=== PATIENT | female | born 1990 | race American Indian/Alaskan Native ===

== ENCOUNTER 2019-07-27 08:34 | Day surgery (SDC) | payer OTHER ==
[2019-07-27 09:23] LABS: Basophils % (Auto) 0.8 % (0.0-1.8); Eosinophils # (Auto) 0.1 K/mm3 (0.0-0.4); Eosinophils % (Auto) 0.9 % (0.0-4.3); Hemoglobin 10.9 gm/dl (10.1-14.3); Lymphocytes % (Auto) 33.8 % (13.4-35.0); Mean Corpuscular HGB Conc 33 % (30-34); Mean Corpuscular Volume 88 fl (79-97); Monocytes # (Auto) 0.3 K/mm3 (0.0-0.8); Monocytes % (Auto) 5.6 % (0.0-7.3); Platelet Count 253 K/mm3 (140-440); Red Blood Count 3.77 M/mm3 (3.65-5.03); Red Cell Distribution Width 15.6 % (13.2-15.2)
[2019-07-27] MEDS ORDERED: MORPHINE 4 MG/1 ML INJ IV ONE ×2 (09:54→13:39)
[2019-07-27] MEDS ORDERED: ONDANSETRON 4 MG/2 ML INJ IV ONE (09:54)
[2019-07-27] MEDS ORDERED: SODIUM CHLORIDE 0.9% 1000 ML 1,000 ML IV ONE ×2 (09:54→13:39)
--- NOTE | 2019-07-27 10:03 | Emergency Department Report ---
ED Abdominal Pain HPI - General Chief Complaint: Abdominal Pain Stated Complaint: ABD PAIN Time Seen by Provider: 07/27/19 09:53 Source: patient, EMS Mode of arrival: Wheelchair Limitations: No Limitations - History of Present Illness Initial Comments: Job is a 29 yo female with hx of ectopic x 2 who presents with lower abdominal pain radiating to the umbilicus for the past one week. Pain began after falling down the steps. Initially intermittnent then returned 3 days ago. Has had vaginal spotting. No vaginal discahrge. severe pain today. achyy sharp pain. no change with movement. 2 months ago she had her left fallopian tube removed from an ectopic at [facility]. Patient has been 5 previous times. Two ectopic pregnancies. One live . One surgical . One miscarriage. MD Complaint: abdominal pain -: Gradual, week(s) (1) Location: LLQ, RLQ Radiation: other (radiates to the umbilicus) Migration to: periumbilical Severity: severe Quality: cramping, aching, sharp Consistency: constant Improves With: nothing Worsens With: nothing Context: recent surgery/procedure (fallopian tube removed 2 months ago) Associated Symptoms: other (vaginal spotting) - Related Data Allergies Allergy/AdvReac Type Severity Reaction Status Date / Time No Known Allergies Allergy Unverified 07/27/19 08:34 ED Review of Systems ROS: Stated complaint: ABD PAIN Other details as noted in HPI Comment: All other systems reviewed and negative Constitutional: denies: fever, malaise Respiratory: denies: cough Cardiovascular: denies: chest pain Gastrointestinal: abdominal pain. denies: nausea, vomiting ED Past Medical Hx - Past Medical History Previous Medical History?: Yes Additional medical history: Ectopic / x 4 - Surgical History Past Surgical History?: Yes Additional Surgical History: Ectopic - Social History Smoking Status: Current Every Day Smoker Substance Use Type: Marijuana ED Physical Exam - General Limitations: No Limitations General appearance: alert, in no apparent distress, other (walking around room with mild discomfort) - Head Head exam: Present: atraumatic, normocephalic - Eye Eye exam: Present: normal appearance - ENT ENT exam: Present: mucous membranes moist - Neck Neck exam: Present: normal inspection, full ROM - Respiratory Respiratory exam: Present: normal lung sounds bilaterally. Absent: respiratory distress, wheezes, rales, rhonchi - Cardiovascular Cardiovascular Exam: Present: regular rate, normal rhythm, normal heart sounds. Absent: systolic murmur, diastolic murmur, rubs, gallop - GI/Abdominal GI/Abdominal exam: Present: soft, normal bowel sounds. Absent: distended, tenderness, guarding, rebound - External exam: Present: normal external exam. Absent: erythema, swelling, lesions, lacerations, ecchymosis, bleeding Speculum exam: Present: vaginal discharge Bi-manual exam: Present: cervical motion tendernes, adnexal tenderness - Extremities Exam Extremities exam: Present: normal inspection - Neurological Exam Neurological exam: Present: alert, oriented X3 - Psychiatric Psychiatric exam: Present: normal affect, normal mood - Skin Skin exam: Present: warm, dry, intact, normal color. Absent: rash ED Course Vital Signs 07/27/19 07/27/19 07/27/19 08:37 09:58 10:01 Temperature 97.8 F Pulse Rate 61 Respiratory 16 15 Rate Blood Pressure 99/35 100/52 Blood Pressure 100/52 [Right] O2 Sat by Pulse 100 100 Oximetry 07/27/19 07/27/19 07/27/19 10:15 10:31 10:39 Temperature Pulse Rate 61 59 L Respiratory 13 11 L 14 Rate Blood Pressure 100/52 100/52 Blood Pressure [Right] O2 Sat by Pulse Oximetry 07/27/19 07/27/19 07/27/19 10:45 11:01 11:09 Temperature Pulse Rate 57 L 61 Respiratory 8 L 11 L 16 Rate Blood Pressure 100/52 100/52 Blood Pressure [Right] O2 Sat by Pulse 100 100 Oximetry 07/27/19 07/27/19 07/27/19 11:15 11:31 11:45 Temperature Pulse Rate 58 L 54 L 55 L Respiratory 10 L 11 L 9 L Rate Blood Pressure 100/52 100/52 100/52 Blood Pressure [Right] O2 Sat by Pulse 100 100 100 Oximetry 07/27/19 07/27/19 07/27/19 12:01 12:15 12:30 Temperature Pulse Rate 59 L 60 78 Respiratory 15 13 10 L Rate Blood Pressure 100/52 100/52 100/52 Blood Pressure [Right] O2 Sat by Pulse 100 100 Oximetry 07/27/19 07/27/19 07/27/19 13:51 13:54 14:01 Temperature Pulse Rate 65 59 L Respiratory 21 16 12 Rate Blood Pressure 100/52 79/35 Blood Pressure [Right] O2 Sat by Pulse 97 Oximetry ED Medical Decision Making - Lab Data Result diagrams: 07/27/19 08:59 07/27/19 10:14 - Medical Decision Making Ms. Carrington presented with lower abdominal pelvic pain. She had exquisite pelvic tenderness during bimanual exam. S\he has right-sided ectopic in the adnexa 7 week 3 day gestational age with heart rate. She will need surgical intervention. Dr. Jerry Tang came to the emergency department immediately to evaluate and manage the patient. Critical care attestation.: If time is entered above; I have spent that time in minutes in the direct care of this critically ill patient, excluding procedure time. ED Disposition Clinical Impression: Ectopic Disposition: OP ADMIT IP TO THIS HOSP Is pt being admited?: Yes Does the pt Need Aspirin: No
[2019-07-27 11:20] LABS: Alanine Aminotransferase 9 units/L (7-56); Albumin 4.3 g/dL (3.9-5); BUN/Creatinine Ratio 10; Blood Urea Nitrogen 5 mg/dL (7-17); Calcium 9.5 mg/dL (8.4-10.2); Hemolysis Index 21
[2019-07-27 11:46] LABS: Bilirubin,Direct < 0.2 mg/dL (0-0.2)
--- NOTE | 2019-07-27 14:31 | Ultrasound Report ---
OB ultrasound FINDINGS: There is a fluid collection within the uterine cavity which may well be a pseudogestational sac as there is a viable 7 week 3 day ectopic in the right adnexa. heart rate is 162 bpm. The adjacent right ovary is normal. Left ovary contains a 1.2 x 1.3 x 1.1 cm cyst. There is a s mall amount of free adjacent to left ovary and uterus. IMPRESSION: Viable right adnexal ectopic . Critical result was called to Dr. Laine Huang in the [facility] emergency room at 1315 [place] Time of discovery was 1305 hours. Signer Name: Ben Reyes MD Signed: 07/27/2019 2:27 PM Workstation Name: [id number]
--- NOTE | 2019-07-27 14:31 | Ultrasound Report ---
See prior report Signer Name: Ben Reyes MD Signed: 07/27/2019 2:27 PM Workstation Name: [id number]
--- NOTE | 2019-07-27 15:30 | Short Stay Summary ---
Short Stay Documentation Date of service: 07/27/19 Narrative H&P: Pt is a 29 yo female BF LMP 06/28/19 with hx of ectopic x 2 who presents with lower abdominal pain radiating to the umbilicus for the past one week. Pain began after falling down the steps, was initially intermittent, then returned 3 days ago. Now has had vaginal spotting, no vaginal discharge, but severe pain today. No change with movement. 2 months ago she had her left fallopian tube removed from an ectopic at [facility]. Today pelvic u/s shows a Right ectopic . Bhcg is 34,878 and H/H - 10.9/33.0 I discussed the possibility of losing her right fallopian tube. Will try to save the right tube if not severely damaged. - History Principal diagnosis: Right ectopic H&P: obtained from office Past Medical History: No medical history Past Surgical History: Other (Laparoscopic left salpingectomy) Social history: no significant social history, single - Allergies and Medications Current Medications: Allergies No Known Allergies Allergy (Unverified 07/27/19 08:34) - Physical exam General appearance: mild distress Integumentary: no rash HEENT: Atraumatic Lungs: Clear to auscultation Breasts: deferred Heart: Regular rate Gastrointestinal: tenderness Female Genitourinary: deferred Rectal Exam: deferred Extremities: no ischemia, No edema Neurological: Normal speech - Brief post op/procedure progress note Date of procedure: 07/27/19 Pre-op diagnosis: 1. Abdominal pain 2. Right ectopic Post-op diagnosis: same (with Hematoperitoneum) Procedure: 1. Laparoscopic right partial salpingectomy 2. Evacuation of hematoperitoneum Anesthesia: GETA Findings: An enlarged uterus with 150ml of blood in the peritoneal cavity. Absent left fallopian tube. A large mass in the distal portion of the right fallopian tube, ruptured and bleeding. Normal ovaries bilaterally. Surgeon: JJ CELIS Estimated blood loss: other (150ml) Pathology: list (Right fallopian tube) Specimen disposition: to lab Condition: stable - Hospital course Hospital course: Unremarkable. - Disposition Condition at discharge: Good Disposition: DC- TO HOME OR SELFCARE - Discharge Diagnoses (1) Hemoperitoneum due to rupture of right tubal ectopic Status: Resolved (2) Ectopic Status: Resolved Qualifiers: Location of ectopic : tubal Intrauterine status: without intrauterine Laterality: right Qualified Code(s): O00.101 - Right tubal without intrauterine Short Stay Discharge Plan Activity: no restrictions Diet: regular Wound: open to air, keep clean and dry Follow up with: PRIMARY CARE, [Primary Care Provider] - 3-5 Days JJ CELIS MD [Staff Physician] - 14 Days Prescriptions: Ibuprofen [Motrin] 800 mg PO Q8HR PRN #30 tablet PRN Reason: Pain, Mild (1-3) HYDROcodone/APAP 5-325 [[place] 5/325] 1 each PO Q6HR PRN #30 tablet PRN Reason: Pain
[2019-07-27] MEDS ORDERED: LACTATED RINGERS 1,000 ML IV SCH (16:00)
[2019-07-27] MEDS ORDERED: ceFAZolin/Water 2 GM/20 ML 2 GM/20 ML SYRINGE IV NR (16:00)
[2019-07-27] MEDS ORDERED: ROCURONIUM 50 MG/5 ML INJ IV ONE (16:42)
[2019-07-27] MEDS ORDERED: PROPOFOL 200 MG/20 ML VIAL IV ONE (16:42)
[2019-07-27] MEDS ORDERED: HYDROmorphone 1 MG/1 ML INJ ONE (16:42)
[2019-07-27] MEDS ORDERED: LIDOCAINE MPF (2%) 20 MG/1 ML VIAL 5 ML ONE (16:43)
--- NOTE | 2019-07-27 16:45 | Anesthesia Day of Surgery ---
Anesthesia Day of Surgery - Day of Surgery Patient Examined: Yes Patient H&P Reviewed: Yes Patient is NPO: Yes
--- NOTE | 2019-07-27 16:45 | Anesthesia Consultation ---
Anesthesia Consult and Med Hx Date of service: 07/27/19 - Airway Anesthetic Teeth Evaluation: Good ROM Head & Neck: Adequate Mental/Hyoid Distance: Adequate Mallampati Class: Class II Intubation Access Assessment: Probably Good - Pulmonary Exam CTA: Yes - Cardiac Exam Cardiac Exam: RRR - Pre-Operative Health Status ASA Pre-Surgery Classification: ASA2, Emergency Proposed Anesthetic Plan: General - Pulmonary Hx Smoking: Yes (marijuana, no tobacco products) Hx Respiratory Symptoms: No - Cardiovascular System Hx Hypertension: No Hx Heart Attack/AMI: No Hx Percutaneous Transluminal Coronary Angioplasty (PTCA): No Hx Cardia Arrhythmia: No - Central Nervous System CVA: No - Gastrointestinal Hx Gastroesophageal Reflux Disease: No - Endocrine Hx Renal Disease: No Hx Liver Disease: No Hx Insulin Dependent Diabetes: No Hx Non-Insulin Dependent Diabetes: No Hx Thyroid Disease: No - Hematic Hx Anemia: Yes - Other Systems Hx Obesity: Yes (BMI 32) - Additional Comments Anesthesia Medical History Comments: No hx anesthetic complications. 7wk ectopic on ultrasound. No nausea/vomiting. Anemic with borderline hypotension. Plan GETA. Patient has given verbal consent for blood transfusion if necessary.
[2019-07-27] MEDS ORDERED: BUPIVACAINE/PF (0.5%) 5 MG/1 ML 30 ML VIAL INFILTRATI ONE ×3 (16:47→17:57)
[2019-07-27] MEDS ORDERED: ceFAZolin/Water 2 GM/20 ML 2 GM/20 ML SYRINGE IV ONE (17:27)
[2019-07-27] MEDS ORDERED: CITRIC ACID-SOD CITRATE 500 ML IV ONE (17:43)
[2019-07-27] MEDS ORDERED: SODIUM CHLORIDE 0.9% IRR 1,000 ML BOTTLE IR ONE (17:57)
[2019-07-27] MEDS ORDERED: HYDROmorphone 1 MG/1 ML INJ IV PRN (18:02)
[2019-07-27] MEDS ORDERED: ONDANSETRON 4 MG/2 ML INJ ONE (18:05)
[2019-07-27] MEDS ORDERED: dexAMETHasone 20 MG/5 ML VIAL ONE (18:05)
[2019-07-27] MEDS ORDERED: LACTATED RINGERS 1,000 ML ONE ×2 (18:06→19:01)
[2019-07-27] MEDS ORDERED: SODIUM CHLORIDE 0.9% 1000 ML 1,000 ML ONE (18:10)
[2019-07-27] MEDS ORDERED: GLYCOPYRROLATE 0.4 MG/2 ML INJ ONE (18:21)
[2019-07-27] MEDS ORDERED: NEOSTIGMINE 10MG/10 ML INJ MDV ONE (18:22)
[2019-07-27] MEDS ORDERED: PHENYLEPHRINE/NS 1,000 MCG/10 ML SYRINGE (OR USE) IV ONE (18:27)
[2019-07-27] MEDS ORDERED: KETOROLAC 30 MG/1 ML INJ IV ONE (18:46)
[2019-07-27] MEDS ORDERED: MEPERIDINE 25 MG/1 ML INJ ONE (19:00)
--- NOTE | 2019-07-27 19:00 | Operative Report ---
Operative Report Operative Report: Date of procedure: 07/27/2019 Pre-operative diagnosis: 1. Pelvic pain 2. Right ectopic Post-operative diagnosis: Same with Ruptured right ectopic 2. Hematoperitoneum Procedure name(s): Laparoscopic Right partial salpingectomy Surgeon: Dr. Jerry Tang Stencil Cutter: None Anesthesia: Gen. endotracheal intubation EBL: 125mls hematoperitoneum Findings: An enlarged uterus with absent left fallopian tube and normal left ovary. A large mass in the distal portion of the right fallopian tube, ruptured and bleeding. Normal right ovary. ~ 125mls of hematoperitoneum. Procedure: After the patient was correctly identified, she was prepped and draped in the usual sterile fashion and placed in the dorsolithotomy position. Next the bladder was emptied using a Calle catheter, and the speculum was placed in the vaginal vault. The anterior lip of the cervix was grasped using single- tooth tenaculum, and the uterine manipulator was then placed. The tenaculum and speculum were then removed. Attention was then turned to the abdomen where periumbilical incision was made using the skin knife, and the Optiview trocar was inserted under direct visualization. Immediately there was noted to be blood in the peritoneal cavity. After adequate amount of abdominal insufflation, visualization of the pelvic organs showed the large mass in the distal portion of the right fallopian tube. A suprapubic and a right lateral incision was made through which 5 mm trochars were placed in order to aid in manipulation of the pelvic organs. Evacuation of the hemoperitoneum was performed using the suction biomedical analytical scientist, then visualization of the pelvic organs found the uterus to be enlarged with the absence of the left fallopian tube, the bleeding right fallopian tube and normal ovaries bilaterally. The distal portion of the right fallopian tube was excised using the Tripolar cautery, placed in an Endopouch and sent to pathology. Copious amounts of irrigation was then performed using 3 liters of irrigation, and then the Tisseel Sealant was sprayed across this right salpingectomy site. At this point the procedure was considered complete. All instruments were removed from the abdomen. The abdomen was deflated, and a periumbilical incision was closed using 0 Vicryl suture in a [id number] configuration on the fascia followed by 4 Monocryl suture in a sub-cuticular fashion on the skin. The suprapubic and right lateral incisions were closed in similar fashion. Each incision was infiltrated using 0.5% Marcaine Solution. The uterine manipulator was removed. The patient tolerated the procedure well and was transferred to recovery in stable condition.
[2019-07-27] MEDS ORDERED: HYDROcodone/ACETAMINOPHEN 5-325 MG TAB ONE (19:01)
[2019-07-27] MEDS ORDERED: HYDROcodone/ACETAMINOPHEN 5-325 MG TAB PO PRN (19:12)
[2019-07-27] MEDS ORDERED: MEPERIDINE 25 MG/1 ML INJ IV PRN (19:14)
--- NOTE | 2019-07-27 20:07 | Post Anesthesia Evaluation ---
- Post Anesthesia Evaluation Patient Participated: Yes Airway Patent: Yes Stable Respiratory Function: Yes Nausea/Vomiting: No Temp > 96.8F: Yes Pain Manageable: Yes Adequeate Hydration: Yes Anesthesia Complications: No Other Comments: Patient arrived to hospital unaccompanied and is now appropriate for discharge from PACU to home. Mukesh is at home but does not have a means to pick her up from the hospital. Medical transportation has been arranged with [employer]. Mukesh will be home to receive the patient after discharge.
[2019-07-27 20:49] VITALS: BP 98/54
== END 2019-07-27 17:00 | disposition home or self-care (01) ==
LOC: OR 08:34 → ED 08:34 → EDSTATUS 18:24
PROVIDERS: ATTEND Emergency Medicine
DX: O00.101 Right tubal pregnancy without intrauterine pregnancy (principal); E66.9 Obesity, unspecified; F17.210 Nicotine dependence, cigarettes, uncomplicated; Z79.899 Other long term (current) drug therapy; Z68.32 Body mass index [BMI] 32.0-32.9, adult; Z86.2 Personal history of diseases of the blood and blood-forming organs and certain disorders involving the immune mechanism
CPT/HCPCS: 36415; 59151; 76801; 76802; 76817; 80048; 80076; 83690; 84702; 85025; 86850; 86900; 86901; 88305; C9250; J0690; J1100; J1170; J1885; J2175; J2270; J2370; J2405; J2704; J2710; J7030; J7120; 86920